=== PATIENT | female | born 1985 | race Caucasian/White ===

== ENCOUNTER 2024-07-17 00:52 | Emergency (ER) | payer OTHER, SELFPAY ==
[2024-07-17 00:55] VITALS: BP 98/65
[2024-07-17 01:16] LABS: % Basophils 0.4 % (0-2); % Eosinophils 0.3 % (0-6); % Immature Granulocytes 0.3 % (0-0.5); % Lymphocytes 9.4 % (20.5-51.1); % Neutrophils 88.6 % (42.2-75.2); Absolute Basophils 0.1 10^3/uL (0-0.2); Absolute Lymphocytes 1.1 10^3/uL (1.2-3.4); Absolute Monocytes 0.1 10^3/uL (0.1-0.6); Absolute Neutrophils 10.2 10^3/uL (1.4-6.5); Hematocrit 36.3 % (37.0-47.0); Hemoglobin 12.8 g/dL (12.0-16.0); Mean Corp Hgb Conc. 35.3 g/dL (33.0-37.0); Mean Corpuscular Hgb 30.5 pg (27.0-31.0); Mean Corpuscular Volume 86.6 fL (81.0-99.0); Mean Platelet Volume 9.4 fL (7.4-10.4); Nucleated Red Blood Cells % 0 %; Platelet Count 269 10^3/uL (130-400); Red Blood Cell Count 4.19 10^6/uL (4.20-5.40); Red Cell Dist. Width 13.4 % (11.5-14.5); White Blood Cell Count 11.6 10^3/uL (4.8-10.8)
[2024-07-17 01:33] LABS: ALT (SGPT) 20 U/L (0-35); AST (SGOT) 22 U/L (14-36); Albumin 4.2 g/dl (3.5-5.0); Alkaline Phosphatase 52 U/L (38-126); Blood Urea Nitrogen 11 mg/dl (7-17); Calcium 9.1 mg/dl (8.4-10.2); Carbon Dioxide 20 mmol/L (22-30); Chloride 108 mmol/L (98-107); Glucose 115 mg/dl (70-99); Potassium 3.6 mmol/L (3.5-5.1); Sodium 139 mmol/L (135-145); Total Bilirubin 1.1 mg/dl (0.2-1.3); Total Protein 6.7 g/dl (6.3-8.2); eGFR > 60.00
[2024-07-17 01:34] LABS: COVID-19 Antigen Negative (Negative)
[2024-07-17 03:30] VITALS: BP 94/64
[2024-07-17 04:00] VITALS: BP 105/85
[2024-07-17] MEDS: OFIRMEV 100 IV (04:44)
[2024-07-17] MEDS: NSS 1000 IV (04:44)
[2024-07-17 04:53] LABS: Urine Albumin Negative (Neg - Trace); Urine Bilirubin Negative (Negative); Urine Character Clear (Clear); Urine Color Yellow; Urine Glucose Negative (Negative); Urine Ketone Negative (Negative); Urine Leukocyte 1+ (Negative); Urine Nitrite Negative (Negative); Urine Occult Blood Negative (Negative); Urine Urobilinogen Negative (Neg - 1+)
[2024-07-17 05:06] LABS: Lactic Acid 1.1 mmol/L (0.7-2.0)
[2024-07-17 05:27] LABS: Urine Squamous Cell >30 /LPF (Few)
[2024-07-17 05:29] LABS: Urine Red Blood Cell None Seen /HPF (0-2)
[2024-07-17] MEDS: MOTRIN 600 MG PO (06:04)
[2024-07-17] MEDS: COMPAZINE 10 MG IV (06:04)
[2024-07-17] MEDS: BENADRYL 25 MG IV (06:04)
--- NOTE | 2024-07-17 06:25 | ED.GENMED ---
History of Present Illness
General
Chief Complaint: Fever
Source: patient and spouse
Exam Limitations: none
Time Seen by Provider: 07/17/24 03:54
Nursing documentation reviewed up to this point in time: agreed with
History of Present Illness
History of Present Illness:
This is a 39-year-old woman with history of mild anxiety, prior history of obesity. Maintained on control pills, Zoloft, Ambien, twice weekly fluconazole for suppression of vulvovaginitis and also maintained on tirzepatide. She complains of
acute onset of fever that began tonight associated with generalized aches, headache, neck pain. Prior to tonight she had been feeling well. Prior travel to [place] and [place] returned 1 month ago. She has not had a cough nor shortness of breath, no
nasal congestion, no sore throat, no chest nor abdominal pain, no dysuria and urgency and or hematuria. She has not had a rash.
No close contacts with similar symptoms.
She took a dose of ibuprofen at 11:30 PM tonight for fever of 101 �F.
Past History
Past History
ED Past Medical History: Psychiatric and Other (Prior history of obesity-maintained on low-dose tirzepatide)
ED Past Surgical History: Other (Breast reduction)
Social History
Tobacco: Smoker
Alcohol: Occasional
Drug: None
Personal:
Living: with family
Family History
Family History: Other (Noncontributory)
Phy Exam
Physical Exam
Physical Exam:
GENERAL: 39-year-old woman appears her stated age, bright and alert, pleasant, easily communicative and in no acute distress. is accompanying. Initial oral temperature 100.5 �F, has improved to the 99.3 �F.
EYE: pupils equal and reactive. anicteric
NECK: Supple, Mild paracervical muscle tenderness to palpation. No midline tenderness. , no meningismus, no significant adenopathy.
ENT: posterior pharynx is clear, oral mucosa is moist. TM clear b/l, nares patent. Pale purple ecchymotic patch left lateral chin region. Patient states this is related to recent filler procedure. Minimal local tenderness. No heat nor erythema.
CARDIAC: Regular rate and rhythm. no murmur.
LUNGS: Clear breath sounds bilaterally, no acute respiratory distress, no wheezes/rales/rhonchi
ABDOMEN: Soft, nondistended, without focal tenderness, no r/g, no cvat. normoactive BS.
NEUROLOGICAL: Alert and oriented x3, no focal neuro deficits. Gait is steady.
SKIN: Warm and dry, normal color, skin intact. No rash.
MUSCULOSKELETAL: No C/C/E. peripheral pulses are full and equal b/l. No palpable tenderness.
PSYCH: Normal and appropriate interaction.
Sepsis
Sepsis Screening
Sepsis Assessment: Sepsis Ruled Out
Sepsis Screen
Sepsis Screen: Sepsis Ruled Out
Date: 07/17/24
Time: 07:26
Course
Orders/Labs/Results
Orders:
Orders
07/17/24 01:03
EKG [Electrocardiogram (*1)] Urgent
Reason for Study: Tachycardia
EKG- Treatment ONCE
07/17/24 01:08
COVID-19 Antigen Urgent
Source: Nasal Swab
Complete Blood Count/With Diff Urgent
Comprehensive Metabolic Panel Urgent
Influenza A+B Rapid Molecular Urgent
KELLY Source: Nasal Swab
Specimen Description:
07/17/24 04:14
0.9% Sodium Chloride 1000 ml [Nss] 1,000 ml IV BOLUS
Acetaminophen 1000MG/100Ml [Ofirmev] 1,000 mg in 100 ml IV ONCE
Acetaminophen IV Indication:: ED Narcotic Naive Pt-ONCE
07/17/24 04:24
Urinalysis Reflex To Culture Urgent
Date Specimen was Collected: 07/17/24
Time Specimen was Collected: 04:22
Urine Microscopic Reflex Cult Urgent
Urine Culture Urgent
KELLY Source: U
Specimen Description:
Date Specimen was Collected: 07/17/24
Time Specimen was Collected: 04:22
07/17/24 04:46
Lactic Acid Urgent
07/17/24 05:46
Diphenhydramine [Benadryl] 25 mg IV NOW STA
Ibuprofen [Motrin] 600 mg PO NOW STA
Prochlorperazine [Compazine] 10 mg IV NOW STA
Abnormal Lab Results
07/17/24 07/17/24
01:08 04:24
WBC 11.6 H 10^3/uL
(4.8-10.8)
RBC 4.19 L 10^6/uL
(4.20-5.40)
Hct 36.3 L %
(37.0-47.0)
Absolute Neuts (auto) 10.2 H 10^3/uL
(1.4-6.5)
Absolute Lymphs (auto) 1.1 L 10^3/uL
(1.2-3.4)
Neutrophils % 88.6 H %
(42.2-75.2)
Lymphocytes % 9.4 L %
(20.5-51.1)
Monocytes % 1.0 L %
(1.7-9.3)
Chloride 108 H mmol/L
(98-107)
Carbon Dioxide 20 L mmol/L
(22-30)
Glucose 115 H mg/dl
(70-99)
Leukocyte Esterase Rfl 1+ A
(Negative)
07/17/24 01:08
07/17/24 01:08
Vital Signs
Initial and Last Documented VS:
Initial Vital Signs
Temp Pulse Resp BP Pulse Ox
100.5 F H 134 20 98/65 97
07/17/24 00:55 07/17/24 00:55 07/17/24 00:55 07/17/24 00:55 07/17/24 00:55
Last Documented Vital Signs
Temp Pulse Resp BP Pulse Ox
99.3 F 92 8 105/85 95
07/17/24 03:50 07/17/24 06:15 07/17/24 06:15 07/17/24 04:00 07/17/24 07:15
MDM/Problems Addressed
Differential Diagnosis Includes:
Concern for acute febrile illness, concern for viral meningitis, other consideration is occult UTI.
Overall quite well in appearance. She does note some neck tenderness and headache, improving and no definitive meningismus, neck is supple.
Thus far labs reveal mildly elevated white blood cell count of 11.6. Chemistries are unremarkable. COVID and flu testing are negative as expected. She has not had a cough and lungs are clear to auscultation.
Will check lactic acid, urinalysis.
Will give IV fluids and an IV dose of Tylenol. Continue to observe.
We did discuss definitive diagnosis for viral meningitis is lumbar puncture. At this point patient is very well in appearance and symptoms are improving with resolution of fever. Will hold off on LP and continue to observe.
*Pulse Oximetry
Patient hypoxic: no
*Critical Care Note
Total Time (30-74mins, 75-104mins- exclusive of procedures): Not Applicable
Update Note
Update Note:
07:15
Patient resting comfortably.
Headache has resolved. She denies neck pain. Neck is supple.
Will discharge to home with recommendations she rest, stay well-hydrated, continue ibuprofen as needed for fever, pain. Will add Compazine for as needed nausea, headache.
Strict return precautions discussed.
ED Attending Note
-
Portions of this chart may have been created with voice recognition software.� Occasional wrong word or��sound alike� substitutions may have occurred due to the inherent limitations of voice recognition software.
Discharge Plan
Departure
Patient Disposition: Home (Routine Discharge)
Date of Disposition: 07/17/24
Time of Disposition: 07:22
Patient with high blood pressure during this ER visit?: No
Condition: Good
Discharge Problem:
Acute febrile illness, Acute viral syndrome
Instructions: Fever, Adult (DC), Viral Syndrome (DC)
Prescriptions:
New
prochlorperazine maleate [Compazine] 10 mg tablet
10 mg PO Q6H PRN (Reason: nausea, headache) Qty: 10 0RF
Referrals:
Stephania Rios CRNP [Family Provider, General] - Call in 1-3 days for appt
Interventions
Interventions:
*Risk Screen - Suicide Last Done: 07/17/24 00:55
*General Assessment Last Done: 07/17/24 00:55
*Neglect/Abuse Screening Last Done: 07/17/24 00:55
*ED- Fall Risk Assessment Last Done: 07/17/24 02:54
*ED COVID-19 Vaccine History Last Done: 07/17/24 02:54
ED- Neurological Assessment Last Done: 07/17/24 06:00
ED-Skin Assessment Last Done: 07/17/24 06:00
Discharge Date and Time
Print Language: GAMBIAN
[2024-07-17 07:22] VITALS: BMI 24.3
== END 2024-07-17 07:54 | disposition home or self-care (01) ==
LOC: EMR 00:52
PROVIDERS: EMERGENCY PHYSICIAN Emergency Medicine; FAMILY PHYSICIAN Nurse Practitioner Primary Care
DX: R50.9 Fever, unspecified (principal); B34.9 Viral infection, unspecified; E66.9 Obesity, unspecified; F17.200 Nicotine dependence, unspecified, uncomplicated
CPT/HCPCS: 99283; 96374; 96375; 96361; 80053; 81003; 81015; 83605; 85025; 87086; 87502; 87811; 93005